=== PATIENT | male | born 1940 | race Caucasian/White ===

== ENCOUNTER → 2017-03-21 | Outpatient (CLI) | payer MEDICARE, BC ==
--- NOTE | 2017-03-21 15:06 | CR ---
EXAMINATION: Lumbar spine HISTORY: Low back pain COMPARISON: 11/12/2016 TECHNIQUE: AP and lateral views FINDINGS: There is grade 1-2 anterolisthesis of L5 on S1 with bilateral posterior fusion. Otherwise the lumbar spinal alignment appears normal. There is mild wedging of the L1 vertebral body, grossly unchanged. Generalized osteopenia is noted. No fracture or acute osseous abnormality. Early osteophy jesse are present. The SI joints are symmetric. IMPRESSION: 1. Grade 1-2 anterolisthesis of L5 on S1 with bilateral posterior fusion. 2. Stable wedge deformity at L1.
== END ==
LOC: MW.DI 11:30
PROVIDERS: ATTEND Neurological Surgery
DX: M54.5 Low back pain (principal); M43.16 Spondylolisthesis, lumbar region; Z98.1 Arthrodesis status; M43.8X6 Other specified deforming dorsopathies, lumbar region
CPT/HCPCS: 72100; 72100-26

== ENCOUNTER 2018-08-13 17:06 | Emergency (ER) | payer MEDICARE, BC ==
[2018-08-13] MEDS ORDERED: Sodium Chloride 0.9% 2.5 ML Syringe FLUSH PRN (17:22)
[2018-08-13] MEDS ORDERED: Ondansetron 4 MG/2 ML SDV IVPUSH ONE (17:22)
[2018-08-13] MEDS ORDERED: Morphine 2 MG/ML Syringe IVPUSH ONE ×2 (17:22→18:15)
[2018-08-13] MEDS ORDERED: Sodium Chloride 0.9% 1,000 ML IV ONE (17:22)
[2018-08-13] MEDS ORDERED: Sodium Chloride 0.9% 10 ML Syringe FLUSH PRN (17:22)
--- NOTE | 2018-08-13 17:25 | EDM.PDOC ---
ED HPI GENERAL MEDICAL PROBLEM - General Source of Information: Reports: Patient History Limitations: Reports: No Limitations right side/back Pain Score (Numeric/FACES): 10 <Alanis Singleton - Last Filed: 08/13/18 18:27> <Madhavi Frey - Last Filed: 08/13/18 20:16> - General Stated Complaint: FELL OFF A STOOL Time Seen by Provider: 08/13/18 17:08 - History of Present Illness INITIAL COMMENTS - FREE TEXT/NARRATIVE: History of present illness: []Patient fell off approximately a 4-1/2 foot stool prior to arrival and landed on his right flank. He denies any loss of consciousness or head injury. Patient states he is not short of breath, but it hurts around his right posterior ribs to take a deep breath. Review of systems: As per history of present illness and below otherwise all systems reviewed and negative. Past medical history: As per history of present illness and as reviewed below otherwise noncontributory. Surgical history: As per history of present illness and as reviewed below otherwise noncontributory. Social history: No reported history of drug or alcohol abuse. Family history: As per history of present illness and as reviewed below otherwise noncontributory. Physical exam: General: Well developed, well nourished in NAD HEENT: Atraumatic, normocephalic, pupils reactive, negative for conjunctival pallor or scleral icterus, mucous membranes moist, throat clear, neck supple, nontender, trachea midline. Lungs: Clear to auscultation, breath sounds equal bilaterally, chest tender posterior lower ribs on the right no subcutaneous or bony crepitance palpated Heart: S1S2, regular, negative for clicks, rubs, or JVD. Abdomen: Soft, nondistended, tender in right lateral upper abdomen. Negative for masses or hepatosplenomegaly. Back:No point vertebral tenderness, no obvious signs of trauma patient is tender over his right posterior lower ribs and flank to palpation Pelvis: Stable nontender. Genitourinary: Deferred. Rectal: Deferred. Extremities: Atraumatic, negative for cords or calf pain. Neurovascular unremarkable. Neuro: Awake, alert, oriented. Cranial nerves II through XII unremarkable. Cerebellum unremarkable. Motor and sensory unremarkable throughout. Exam nonfocal. Skin:warm and dry Diagnostics: CBC, chemistry, lipase, CT chest, abdomenand pelvis Therapeutics: Normal saline, morphine titrated to comfort and Zofran ED Course: Impression: Fall: Prescriptions: Plan: Definitive disposition and diagnosis as appropriate pending reevaluation and review of above. (Alanis Singleton) Case was endorsed to me to follow-up testing results and disposition the patient. Patient has a right posterior lateral eighth rib fracture without internal organ injury and the radiologist contacted me with this result. I conveyed the information to the patient and at bedside. He has an incentive spirometer at home and I will instruct him on using that and give him [place] for pain management. He says he has taken opioids in the past after her back surgery and he is comfortable with low dose medications. Impression: Fall with right posterior lateral eighth rib fracture stable ( Madhavi Frey) - Related Data Allergies Allergy/AdvReac Type Severity Reaction Status Date / Time No Known Allergies Allergy Verified 08/13/18 17:27 Home Meds: Home Meds Calcium Citrate 600 mg PO DAILY 08/13/18 [History] Cholecalciferol (Vitamin D3) [Vitamin D3] 5,000 mg PO DAILY 08/13/18 [History] Diclofenac Sodium [Voltaren] 75 mg PO DAILY 08/13/18 [History] Docusate Sodium [Colace] 100 mg PO DAILY 08/13/18 [History] Finasteride 5 mg PO BEDTIME 08/13/18 [History] Fish Oil/[place]-3 Fatty Acids [Fish Oil 1,000 MG] 1 gm PO DAILY 08/13/18 [History ] Fluticasone Propionate [Flovent] 0.5 mg PO BID 08/13/18 [History] Gluc HCl/Csa/Fabi Hy/Hyalur Ac [Glucosamine Chondroitin] 1 cap PO DAILY [History] Lisinopril 10 mg PO BEDTIME 08/13/18 [History] Multivit with Calcium,Iron,Min [Essential Daily] 1 tab PO DAILY 08/13/18 [ History] Potassium 99 mg PO DAILY 08/13/18 [History] Past Medical History Cardiovascular History: Reports: Hypertension Musculoskeletal History: Reports: Osteoporosis - Past Surgical History HEENT Surgical History: Reports: Adenoidectomy, Tonsillectomy Neurological Surgical History: Reports: Spinal Fusion Musculoskeletal Surgical History: Reports: Arthroscopic Knee <Alanis Singleton - Last Filed: 08/13/18 18:27> Review of Systems - Review of Systems Review Of Systems: ROS reveals no pertinent complaints other than HPI. <Alanis Singleton - Last Filed: 08/13/18 18:27> ED EXAM, GENERAL - Physical Exam Exam: See Below (See history of present illness) <Alanis Singleton - Last Filed: 08/13/18 18:27> - Vital Signs Last Recorded V/S: Last Vital Signs Temp 36.5 C 08/13/18 17:27 Pulse 70 08/13/18 19:32 Resp 18 08/13/18 19:32 BP 155/75 H 08/13/18 19:32 Pulse Ox 96 08/13/18 19:32 - Orders/Labs/Meds Orders: Active Orders 24 hr Category Date Time Status Abdomen Pelvis w Cont [CT] Stat Exams 08/13/18 17:23 Taken Chest w Cont [CT] Stat Exams 08/13/18 17:23 Taken Sodium Chloride 0.9% [Saline Flush] Med 08/13/18 17:22 Active 10 ml FLUSH ASDIRECTED PRN Sodium Chloride 0.9% [Saline Flush] Med 08/13/18 17:22 Active 2.5 ml FLUSH ASDIRECTED PRN Saline Lock Insert [OM.PC] Stat Oth 08/13/18 17:22 Ordered Medication Orders Sodium Chloride (Saline Flush) 10 ml FLUSH ASDIRECTED PRN PRN Reason: Keep Vein Open Sodium Chloride (Saline Flush) 2.5 ml FLUSH ASDIRECTED PRN PRN Reason: Keep Vein Open Labs: Laboratory Tests 08/13/18 08/13/18 Range/Units 17:30 17:30 WBC 5.58 (4.0-11.0) K/uL RBC 4.28 L (4.50-5.90) M/uL Hgb 13.3 (13.0-17.0) g/dL Hct 39.2 (38.0-50.0) % MCV 91.6 (80.0-98.0) fL MCH 31.1 (27.0-32.0) pg MCHC 33.9 (31.0-37.0) g/dL RDW Std Deviation 45.6 (28.0-62.0) fl RDW Coeff of Balwinder 14 (11.0-15.0) % Plt Count 173 (150-400) K/uL MPV 10.50 (7.40-12.00) fL Neut % (Auto) 47.0 L (48.0-80.0) % Lymph % (Auto) 27.6 (16.0-40.0) % [place] % (Auto) 11.5 (0.0-15.0) % Eos % (Auto) 13.4 H (0.0-7.0) % Baso % (Auto) 0.5 (0.0-1.5) % Neut # (Auto) 2.6 (1.4-5.7) K/uL Lymph # (Auto) 1.5 (0.6-2.4) K/uL [place] # (Auto) 0.6 (0.0-0.8) K/uL Eos # (Auto) 0.8 H (0.0-0.7) K/uL Baso # (Auto) 0.0 (0.0-0.1) K/uL Nucleated RBC % 0.0 /100WBC Nucleated RBCs # 0 K/uL Sodium 143 (136-148) mmol/L Potassium 4.2 (3.5-5.1) mmol/L Chloride 105 (98-107) mmol/L Carbon Dioxide 28.3 (21.0-32.0) mmol/L BUN 22 H (7.0-18.0) mg/dL Creatinine 1.0 (0.8-1.3) mg/dL Est Cr Clr Drug Dosing 58.76 mL/min Estimated GFR (MDRD) > 60.0 ml/min Glucose 123 H (74-106) mg/dL Calcium 9.4 (8.5-10.1) mg/dL Total Bilirubin 0.3 (0.2-1.0) mg/dL AST 30 (15-37) IU/L ALT 39 (14-63) IU/L Alkaline Phosphatase 71 (46-116) U/L Total Protein 7.0 (6.4-8.2) g/dL Albumin 3.7 (3.4-5.0) g/dL Globulin 3.3 (2.0-3.5) g/dL Albumin/Globulin Ratio 1.1 L (1.3-2.8) Meds: Medications Generic Name Dose Route Start Last Admin Trade Name Freq PRN Reason Stop Dose Admin Sodium Chloride 10 ml 08/13/18 17:22 Saline Flush FLUSH ASDIRECTED PRN Keep Vein Open Sodium Chloride 2.5 ml 08/13/18 17:22 Saline Flush FLUSH ASDIRECTED PRN Keep Vein Open Discontinued Medications Generic Name Dose Route Start Last Admin Trade Name Freq PRN Reason Stop Dose Admin Sodium Chloride 1,000 mls @ 999 mls/hr 08/13/18 17:22 08/13/18 17:39 Normal Saline IV 08/13/18 18:22 999 mls/hr .Bolus ONE Administration Iopamidol 100 ml 08/13/18 19:15 08/13/18 19:16 Isovue-370 (76%) IVPUSH 08/13/18 19:16 100 ml ONETIME ONE Administration Morphine Sulfate 2 mg 08/13/18 17:22 08/13/18 17:41 Morphine IVPUSH 08/13/18 17:23 2 mg ONETIME ONE Administration Morphine Sulfate 2 mg 08/13/18 18:15 08/13/18 18:20 Morphine IVPUSH 08/13/18 18:16 2 mg ONETIME ONE Administration Ondansetron HCl 4 mg 08/13/18 17:22 08/13/18 17:40 Zofran IVPUSH 08/13/18 17:23 4 mg ONETIME ONE Administration Departure <Alanis Singleton - Last Filed: 08/13/18 18:27> - Departure Time of Disposition: 20:14 Condition: Good <Madhavi Frey - Last Filed: 08/13/18 20:16> - Departure Disposition: Home, Self-Care 01 Clinical Impression: Fall Qualifiers: Encounter type: initial encounter Qualified Code(s): W19.XXXA - Unspecified fall, initial encounter Rib fracture Qualifiers: Encounter type: initial encounter Rib fracture type: single rib Fracture type: closed Laterality: right Qualified Code(s): S22.31XA - Fracture of one rib, right side, initial encounter for closed fracture - Discharge Information Referrals: PCP,None [Primary Care Provider] - Additional Instructions: The following information is given to patients seen in the emergency department who are being discharged to home. This information is to outline your options for follow-up care. We provide all patients seen in our emergency department with a follow-up referral. The need for follow-up, as well as the timing and circumstances, are variable depending upon the specifics of your emergency department visit. If you don't have a primary care physician on staff, we will provide you with a referral. We always advise you to contact your personal physician following an emergency department visit to inform them of the circumstance of the visit and for follow-up with them and/or the need for any referrals to a consulting specialist. The emergency department will also refer you to a specialist when appropriate. This referral assures that you have the opportunity for followup care with a specialist. All of these measure are taken in an effort to provide you with optimal care, which includes your followup. Under all circumstances we always encourage you to contact your private physician who remains a resource for coordinating your care. When calling for followup care, please make the office aware that this follow-up is from your recent emergency room visit. If for any reason you are refused follow-up, please contact the [facility] emergency department at and ask to speak to the emergency department charge nurse. [facility] Primary care- [place] [address] Use the incentive spirometer that you have at home 10 times every 1-2 hours for the next week. Use [place] as needed and as prescribed as well as over-the- counter ibuprofen. Please call and schedule a follow-up appointment with her provider in the clinic and return to ER as needed and as discussed. Expect aches and pains over the next several days
[2018-08-13 18:13] LABS: CHLORIDE,CL 105 mmol/L (98-107); SODIUM,NA 143 mmol/L (136-148)
[2018-08-13] MEDS ORDERED: Iopamidol 755 Mg/ML 100 ML Bottle IVPUSH ONE (19:15)
--- NOTE | 2018-08-14 15:52 | CT ---
EXAM DATE: 08/13/18 PATIENT'S AGE: 77 Patient: ROSEMARY PICHARDO Facility: [place], [place] Site . Site : 1940 Study: CT Chest -08/13/2018 7:19:32 PM Ordering Physician: Mani Thapa Final Report: INDICATION: pain following fall. 1079 images. chest/abdomen pictures coming in single line item send HISTORY: Pain after fall. COMPARISON: None. TECHNIQUE: CT of the chest, abdomen, and pelvis with intravenous contrast. Coronal/ sagittal reconstruction images. 100 cc of Isovue 370 IV. FINDINGS: Chest: The inferior thyroid gland is symmetric. There is no thoracic lymphadenopathy by size criteria. There is no pleural or pericardial effusion. Normal caliber thoracic aorta. Normal caliber main pulmonary artery. No evidence for an intramural/mediastinal hematoma. The lung windows demonstrate no endobronchial mass. There is no bronchiectasis. There is no architectural distortion. There is dependent atelectasis. There is no pneumothorax. There is no evidence for a laceration. There are a few calcified pleural plaques present, primarily in the right hemithorax (series 203 , image 52). Abdomen/pelvis: Hepatic morphology is normal. No dilation of intrahepatic biliary radicals. No perihepatic ascites. Gallstones. No adrenal mass. Symmetric nephrograms. 2 mm stone in the left kidney on image 48, series 301. No perinephric inflammatory changes. Spleen size is normal. There is no pancreatic mass or pancreatic duct dilation. No glandular atrophy. Prostate is enlarged. The prostate measures 4.9 x 4.6 cm in AP and transverse dimensions. Calculi are seen in the dependent portion of the urinary bladder, best seen on image 109 of series 301. Extraperitoneal space of Retzius is clear. There is no evidence for a small bowel or colonic obstruction. There is no perienteric edema. No transition point. No adenopathy is seen by size criteria in the pelvis, retroperitoneum, gastrohepatic ligament, small bowel mesentery. Does demonstrate a sclerotic lesion present in the right iliac bone, which may be postsurgical in nature. Findings should be correlated for any history of malignancy which can produce sclerotic metastases. The patient is post spinal fusion/decompression at the lumbosacral junction. There is anterolisthesis at the lumbosacral junction, which measures 10 mm in dimension. There is an age- indeterminate compression deformity at L1, with between 25 and 50 percent vertebral body height loss. Sclerotic appearance of several left lateral ribs, seen best on image 40, series 202. These are most likely related to chronic fracture deformities. There is a subtle fracture of the right posterior lateral 8th rib on image 58 of series 202. The scapula appears intact. IMPRESSION: 1. No intramural or mediastinal hematoma. 2. No pulmonary laceration or pneumothorax. 3. No hemoperitoneum or visceral organ injury. 4. Prior decompression/spinal fusion at the lumbosacral junction. 10 millimeters of anterolisthesis of L5 on S1. 5. Age-indeterminate compression deformity at L1, with less than 25 percent vertebral body height loss. The middle/posterior columns appear intact at this level. 6. Minimally displaced posterolateral 8th rib fracture. No chest wall hematoma. 7. Prostatic enlargement. Calculi within the urinary bladder, which is likely secondary to bladder outlet obstruction/urinary stasis. 8. Report called to Dr. Frey, Emergency Department, 08/13/18, 2003 hours. Dictated by Zack Aguirre MD @ 08/13/2018 8:04:49 PM Please note that all CT scans at this facility use dose modulation, iterative reconstruction, and/or weight-based dosing when appropriate to reduce radiation dose to as low as reasonably achievable. Dictated by: Zack Aguirre MD @ 08/13/2018 20:04:59 (Electronic Signature) Report Signed by Proxy. [facility] HOSPITALKarolyn
--- NOTE | 2018-08-14 15:53 | CT ---
EXAM DATE: 08/13/18 PATIENT'S AGE: 77 Patient: ROSEMARY PICHARDO Facility: [place], [place] Site . Site : 1940 Study: CT Abdomen -08/13/2018 7:22:26 PM Ordering Physician: Mani Thapa Final Report: INDICATION: image count put under chest req, 1079 ml isovue 370 @ 3.0 ml/sec INDICATION: pain following fall. 1079 images. chest/abdomen pictures coming in single line item send HISTORY: Pain after fall. COMPARISON: None. TECHNIQUE: CT of the chest, abdomen, and pelvis with intravenous contrast. Coronal/ sagittal reconstruction images. 100 cc of Isovue 370 IV. FINDINGS: Chest: The inferior thyroid gland is symmetric. There is no thoracic lymphadenopathy by size criteria. There is no pleural or pericardial effusion. Normal caliber thoracic aorta. Normal caliber main pulmonary artery. No evidence for an intramural/mediastinal hematoma. The lung windows demonstrate no endobronchial mass. There is no bronchiectasis. There is no architectural distortion. There is dependent atelectasis. There is no pneumothorax. There is no evidence for a laceration. There are a few calcified pleural plaques present, primarily in the right hemithorax (series 203 , image 52). Abdomen/pelvis: Hepatic morphology is normal. No dilation of intrahepatic biliary radicals. No perihepatic ascites. Gallstones. No adrenal mass. Symmetric nephrograms. 2 mm stone in the left kidney on image 48, series 301. No perinephric inflammatory changes. Spleen size is normal. There is no pancreatic mass or pancreatic duct dilation. No glandular atrophy. Prostate is enlarged. The prostate measures 4.9 x 4.6 cm in AP and transverse dimensions. Calculi are seen in the dependent portion of the urinary bladder, best seen on image 109 of series 301. Extraperitoneal space of Retzius is clear. There is no evidence for a small bowel or colonic obstruction. There is no perienteric edema. No transition point. No adenopathy is seen by size criteria in the pelvis, retroperitoneum, gastrohepatic ligament, small bowel mesentery. Does demonstrate a sclerotic lesion present in the right iliac bone, which may be postsurgical in nature. Findings should be correlated for any history of malignancy which can produce sclerotic metastases. The patient is post spinal fusion/decompression at the lumbosacral junction. There is anterolisthesis at the lumbosacral junction, which measures 10 mm in dimension. There is an age- indeterminate compression deformity at L1, with between 25 and 50 percent vertebral body height loss. Sclerotic appearance of several left lateral ribs, seen best on image 40, series 202. These are most likely related to chronic fracture deformities. There is a subtle fracture of the right posterior lateral 8th rib on image 58 of series 202. The scapula appears intact. IMPRESSION: 1. No intramural or mediastinal hematoma. 2. No pulmonary laceration or pneumothorax. 3. No hemoperitoneum or visceral organ injury. 4. Prior decompression/spinal fusion at the lumbosacral junction. 10 millimeters of anterolisthesis of L5 on S1. 5. Age-indeterminate compression deformity at L1, with less than 25 percent vertebral body height loss. The middle/posterior columns appear intact at this level. 6. Minimally displaced posterolateral 8th rib fracture. No chest wall hematoma. 7. Prostatic enlargement. Calculi within the urinary bladder, which is likely secondary to bladder outlet obstruction/urinary stasis. 8. Report called to Dr. Frey, Emergency Department, 08/13/18, 2003 hours. Dictated by Zack Aguirre MD @ 08/13/2018 8:04:49 PM Please note that all CT scans at this facility use dose modulation, iterative reconstruction, and/or weight-based dosing when appropriate to reduce radiation dose to as low as reasonably achievable. Dictated by: Zack Aguirre MD @ 08/13/2018 20:06:10 (Electronic Signature) Report Signed by Proxy. [facility]
== END 2018-08-13 20:29 | disposition home or self-care (01) ==
LOC: MW.ED 17:06
DX: S22.31XA Fracture of one rib, right side, initial encounter for closed fracture (principal); I10 Essential (primary) hypertension; Z79.899 Other long term (current) drug therapy; W19.XXXA Unspecified fall, initial encounter
CPT/HCPCS: 36415; 71260; 74177; 80053; 85025; 96361; 96374; 96375; 96376; 99284; J2270; J2405; J7040; Q9967; 99283

== ENCOUNTER 2018-12-15 10:43 | Emergency (ER) | payer MEDICARE, BC ==
[2018-12-15] MEDS ORDERED: Morphine 2 MG/ML Syringe IVPUSH ONE ×2 (11:12→15:47)
--- NOTE | 2018-12-15 11:18 | EDM.PDOC ---
ED HPI GENERAL MEDICAL PROBLEM - General Chief Complaint: Back Pain or Injury Stated Complaint: BACK PAIN Time Seen by Provider: 12/15/18 11:12 Source of Information: Reports: Patient, Family History Limitations: Reports: No Limitations - History of Present Illness INITIAL COMMENTS - FREE TEXT/NARRATIVE: HISTORY AND PHYSICAL: History of present illness: Patient is a 77-year-old male here with complaint of back pain 2 days postop back surgery. She had a spinal stimulator placed on 12/13/18 Dr. Su at [facility]. He states that today he is having 10/10 back pain that is mostly localized in the lumbar back with some pain into the bilateral hips. He states his pain is much worse than prior to his procedure, have some bilateral hip pain prior but is more significant today. He denies any saddle anesthesia, lower extremity weakness that is new or worsened, foot drop, fevers or chills. He has taken his Flexeril and [place] with very little relief of symptoms. He states he tried to call his neurosurgeon today but he was not in sleep advised him to come to the ED. Patient states his pain is mostly muscle spasming that wraps around to his abdomen. He has a follow up with his neurosurgeon on . Review of systems: As per history of present illness and below otherwise all systems reviewed and negative. Past medical history: As per history of present illness and as reviewed below otherwise noncontributory. Surgical history: As per history of present illness and as reviewed below otherwise noncontributory. Social history: No reported history of drug or alcohol abuse. Family history: As per history of present illness and as reviewed below otherwise noncontributory. Physical exam: General: Patient sitting comfortably in no acute distress and nontoxic appearing HEENT: Atraumatic, normocephalic, pupils reactive, negative for conjunctival pallor or scleral icterus, mucous membranes moist, throat clear, neck supple, nontender, trachea midline. No meningeal signs. Lungs: Clear to auscultation, breath sounds equal bilaterally, chest nontender. Heart: S1S2, regular, negative for clicks, rubs, or overt murmur. Abdomen: Moderate tenderness to light palpation of the abdomen diffusely. Soft, nondistended. Negative for masses or hepatosplenomegaly. Negative for costovertebral tenderness. Pelvis: Stable nontender. Genitourinary: Deferred. Rectal: Deferred. Spine: There is an incision at the lower thoracic spine, no surrounding erythema , swelling, discharge or tenderness. Tender to palpation of lumbar vertebra. There is an incision at the right lower back where stimulator battery was placed. It is slightly swollen and ecchymotic and tender to palpation but no erythema or discharge. Extremities: Atraumatic, negative for cords or calf pain. Neurovascular unremarkable. Neuro: Awake, alert, oriented. Cranial nerves II through XII unremarkable. Cerebellum unremarkable. Motor and sensory unremarkable throughout. Exam nonfocal. Notes: Discussed with Dr. Gurrola, neurosurgery at [facility], he states this is normal post surgical pain and advised pain management and no imaging necessary at this time. Diagnostics: CBC, CMP Therapeutics: 4mg Morphine IV 60mg Norflex IM Prescriptions: Norflex Impression: Back pain s/p spinal stimulator implant Plan: 1. Take [place] as prescribed. Discontinue flexeril and start norflex as instructed. Do not drive while taking these medications as they may make you drowsy. 2. Follow up with primary care provider and neurosurgeon 3. Return to ED as needed as discussed Definitive disposition and diagnosis as appropriate pending reevaluation and review of above. back Pain Score (Numeric/FACES): 10 - Related Data Allergies Allergy/AdvReac Type Severity Reaction Status Date / Time No Known Allergies Allergy Verified 12/15/18 11:17 Home Meds: Home Meds Calcium Citrate 600 mg PO DAILY 08/13/18 [History] Cholecalciferol (Vitamin D3) [Vitamin D3] 5,000 mg PO DAILY 08/13/18 [History] Finasteride 5 mg PO BEDTIME 08/13/18 [History] Fish Oil/[place]-3 Fatty Acids [Fish Oil 1,000 MG] 1 gm PO DAILY 08/13/18 [History ] Gluc HCl/Csa/Fabi Hy/Hyalur Ac [Glucosamine Chondroitin] 1 cap PO DAILY [History] Lisinopril 10 mg PO BEDTIME 08/13/18 [History] Multivit with Calcium,Iron,Min [Essential Daily] 1 tab PO DAILY 08/13/18 [ History] Potassium 99 mg PO DAILY 08/13/18 [History] Cyclobenzaprine [Flexeril] 10 mg PO Q6HR PRN 12/15/18 [History] Hydrocodone/Acetaminophen [Hydrocodon-Acetaminophen 5-325] 1 tab PO Q6H PRN 06/25 [History] Past Medical History Cardiovascular History: Reports: Hypertension Musculoskeletal History: Reports: Osteoporosis - Infectious Disease History Infectious Disease History: Reports: Chicken Pox, Mumps - Past Surgical History HEENT Surgical History: Reports: Adenoidectomy, Tonsillectomy Neurological Surgical History: Reports: Spinal Fusion Musculoskeletal Surgical History: Reports: Arthroscopic Knee Social & Family History - Family History Family Medical History: Noncontributory - Caffeine Use Caffeine Use: Reports: Coffee ED ROS GENERAL - Review of Systems Review Of Systems: ROS reveals no pertinent complaints other than HPI. ED EXAM,LOWER BACK PAIN/INJURY - Physical Exam Exam: See Below (See dictation) Course - Vital Signs Last Recorded V/S: Last Vital Signs Temp 96.3 F 12/15/18 11:19 Pulse 89 12/15/18 13:00 Resp 18 12/15/18 13:00 BP 147/86 H 12/15/18 13:00 Pulse Ox 98 12/15/18 13:00 - Orders/Labs/Meds Orders: Active Orders 24 hr Category Date Time Status Morphine Med 12/15/18 15:47 Once 2 mg IVPUSH ONETIME ONE Labs: Laboratory Tests 12/15/18 12/15/18 Range/Units 11:48 11:48 WBC 6.05 (4.0-11.0) K/uL RBC 3.79 L (4.50-5.90) M/uL Hgb 11.6 L (13.0-17.0) g/dL Hct 35.0 L (38.0-50.0) % MCV 92.3 (80.0-98.0) fL MCH 30.6 (27.0-32.0) pg MCHC 33.1 (31.0-37.0) g/dL RDW Std Deviation 44.5 (28.0-62.0) fl RDW Coeff of Bal[place] 13 (11.0-15.0) % Plt Count 136 L (150-400) K/uL MPV 10.60 (7.40-12.00) fL Neut % (Auto) 62.7 (48.0-80.0) % Lymph % (Auto) 23.0 (16.0-40.0) % [place] % (Auto) 12.4 (0.0-15.0) % Eos % (Auto) 1.7 (0.0-7.0) % Baso % (Auto) 0.2 (0.0-1.5) % Neut # (Auto) 3.8 (1.4-5.7) K/uL Lymph # (Auto) 1.4 (0.6-2.4) K/uL [place] # (Auto) 0.8 (0.0-0.8) K/uL Eos # (Auto) 0.1 (0.0-0.7) K/uL Baso # (Auto) 0.0 (0.0-0.1) K/uL Nucleated RBC % 0.0 /100WBC Nucleated RBCs # 0 K/uL Sodium 141 (136-148) mmol/L Potassium 4.4 (3.5-5.1) mmol/L Chloride 104 (98-107) mmol/L Carbon Dioxide 33.3 H (21.0-32.0) mmol/L BUN 18 (7.0-18.0) mg/dL Creatinine 1.2 (0.8-1.3) mg/dL Est Cr Clr Drug Dosing 48.96 mL/min Estimated GFR (MDRD) 58.9 ml/min Glucose 131 H (74-106) mg/dL Calcium 9.4 (8.5-10.1) mg/dL Total Bilirubin 0.6 (0.2-1.0) mg/dL AST 100 H (15-37) IU/L ALT 27 (14-63) IU/L Alkaline Phosphatase 49 (46-116) U/L Total Protein 6.5 (6.4-8.2) g/dL Albumin 3.4 (3.4-5.0) g/dL Globulin 3.1 (2.6-4.0) g/dL Albumin/Globulin Ratio 1.1 (0.9-1.6) Meds: Medications Discontinued Medications Generic Name Dose Route Start Last Admin Trade Name Freq PRN Reason Stop Dose Admin Morphine Sulfate 2 mg 12/15/18 11:12 12/15/18 11:28 Morphine IVPUSH 12/15/18 11:13 2 mg ONETIME ONE Administration Orphenadrine Citrate 60 mg 12/15/18 12:07 12/15/18 12:41 Norflex IM 12/15/18 12:08 Not Given NOW STA Orphenadrine Citrate 60 mg 12/15/18 12:38 12/15/18 12:41 Norflex IV 12/15/18 12:39 60 mg NOW STA Administration Departure - Departure Time of Disposition: 15:50 Disposition: Home, Self-Care 01 Condition: Good Clinical Impression: Back pain, Previous back surgery, Spinal cord stimulator status - Discharge Information Referrals: PCP,Unknown [Primary Care Provider] - Forms: ED Department Discharge Additional Instructions: The following information is given to patients seen in the emergency department who are being discharged to home. This information is to outline your options for follow-up care. We provide all patients seen in our emergency department with a follow-up referral. The need for follow-up, as well as the timing and circumstances, are variable depending upon the specifics of your emergency department visit. If you don't have a primary care physician on staff, we will provide you with a referral. We always advise you to contact your personal physician following an emergency department visit to inform them of the circumstance of the visit and for follow-up with them and/or the need for any referrals to a consulting specialist. The emergency department will also refer you to a specialist when appropriate. This referral assures that you have the opportunity for follow-up care with a specialist. All of these measure are taken in an effort to provide you with optimal care, which includes your follow-up. Under all circumstances we always encourage you to contact your private physician who remains a resource for coordinating your care. When calling for follow-up care, please make the office aware that this follow-up is from your recent emergency room visit. If for any reason you are refused follow-up, please contact the [facility] Emergency Department at and asked to speak to the emergency department charge nurse. [facility] [address] [place] [id number] [address] 1. Take [place] as prescribed. Discontinue flexeril and start norflex as instructed. Do not drive while taking these medications as they may make you drowsy. 2. Follow up with primary care provider and neurosurgeon 3. Return to ED as needed as discussed - My Orders Last 24 Hours: My Active Orders 12/15/18 15:47 Morphine 2 mg IVPUSH ONETIME ONE - Assessment/Plan Last 24 Hours: My Active Orders 12/15/18 15:47 Morphine 2 mg IVPUSH ONETIME ONE
--- NOTE | 2018-12-15 15:34 | CT ---
CT of the abdomen and pelvis with contrast. HISTORY: Pain TECHNIQUE: Axial CT images were obtained of the abdomen and pelvis following administration of 100 mL of Isovue-370 the right antecubital fossa without complication. Coronal and sagittal reconstructions obtained. FINDINGS: The lung bases are clear, no pleural effusion. Mild dependent atelectasis. Calcified pleural plaques noted. The liver, spleen, and pancreas appear normal. Multiple gallstones noted within the gallbladder without significant gallbladder wall thickening. No bulky retroperitoneal lymphadenopathy or abdominal ascites. The kidneys enhance and function symmetrically without evidence of obstructive uropathy. Nonobstructing nephrolithiasis within the lower pole of the left kidney. The large and small bowel are normal in caliber without evidence of obstruction. No focal pericolonic inflammation or stranding. The appendix is normal. The urinary bladder is normal. Mild prominence of the prostate with fungating appearance into the urinary bladder. Minimal right inguinal hernia containing a very small portion of small bowel. There is grade 1 anterolisthesis of L5 on S1. Bilateral posterior fusion noted at this level with overlying laminectomy changes. There is a recently placed spinal cord stimulator device noted with leads projecting over the mid thoracic spine. IMPRESSION: 1. Cholelithiasis without definite cholecystitis. 2. Nonobstructing left nephrolithiasis. 3. Recently placed spinal stimulator device noted with leads projecting over the midthoracic spine. 4. Calcified pleural plaques, likely secondary to previous is best this exposure. 5. Postsurgical changes noted within the lower lumbar spine. Mild prostatomegaly. 6. Minimal right inguinal hernia containing a very small portion of small bowel.
[2018-12-15] MEDS ORDERED: Iopamidol 755 MG/ML 500 ML Multipack Bottle IVPUSH STA (16:02)
== END 2018-12-15 16:19 | disposition home or self-care (01) ==
LOC: MW.ED 10:43
DX: M54.5 Low back pain (principal); I10 Essential (primary) hypertension; Z79.899 Other long term (current) drug therapy; Z96.9 Presence of functional implant, unspecified; Z98.890 Other specified postprocedural states
CPT/HCPCS: 36415; 74177; 80053; 85025; 96374; 96375; 99284; J2270; J2360; Q9967; 99283

== ENCOUNTER 2019-12-28 16:22 | Emergency (ER) | payer MEDICARE, BC ==
--- NOTE | 2019-12-28 17:28 | EDM.PDOC ---
ED HPI GENERAL MEDICAL PROBLEM - General Chief Complaint: Genitourinary Problem Stated Complaint: BLADDER CONTROL Time Seen by Provider: 12/28/19 17:28 Source of Information: Reports: Patient History Limitations: Reports: No Limitations - History of Present Illness INITIAL COMMENTS - FREE TEXT/NARRATIVE: HISTORY AND PHYSICAL: History of present illness: Patient is a 78-year-old male presents to the ED with complaint of frequent urination. He states since this morning he is having the urge to urinate but when he goes he only urinates a small amount. He states he has been incontinent of urine as well. He denies bowel incontinence. He reports history of chronic back pain but no new or worsening back pain or injury. He denies fevers, chills , nausea, vomiting, diarrhea, hematuria. Review of systems: As per history of present illness and below otherwise all systems reviewed and negative. Past medical history: As per history of present illness and as reviewed below otherwise noncontributory. Surgical history: As per history of present illness and as reviewed below otherwise noncontributory. Social history: No reported history of drug or alcohol abuse. Family history: As per history of present illness and as reviewed below otherwise noncontributory. Physical exam: General: Patient sitting comfortably in no acute distress and nontoxic appearing HEENT: Atraumatic, normocephalic, pupils reactive, negative for conjunctival pallor or scleral icterus, mucous membranes moist, throat clear, neck supple, nontender, trachea midline. No meningeal signs. Lungs: Clear to auscultation, breath sounds equal bilaterally, chest nontender. Heart: S1S2, regular, negative for clicks, rubs, or overt murmur. Abdomen: Soft, nondistended, nontender. Negative for masses or hepatosplenomegaly. Negative for costovertebral tenderness. No rigidity, rebound , guarding. Pelvis: Stable nontender. Genitourinary: Deferred. Rectal: Deferred. Extremities: Atraumatic, negative for cords or calf pain. Neurovascular unremarkable. Neuro: Awake, alert, oriented. Cranial nerves II through XII unremarkable. Cerebellum unremarkable. Motor and sensory unremarkable throughout. Exam nonfocal. Notes: Diagnostics: UA Therapeutics: none Prescriptions: Cipro Impression: UTI Plan: Drink plenty of fluids and take antibiotic as directed. Follow up with primary care provider Return to ED as needed as discussed Definitive disposition and diagnosis as appropriate pending reevaluation and review of above. - Related Data Allergies Allergy/AdvReac Type Severity Reaction Status Date / Time No Known Allergies Allergy Verified 12/28/19 16:36 Home Meds: Home Meds Calcium Citrate 600 mg PO BID 08/13/18 [History] Cholecalciferol (Vitamin D3) [Vitamin D3] 5,000 mg PO DAILY 08/13/18 [History] Finasteride 5 mg PO BEDTIME 08/13/18 [History] Fish Oil/[place]-3 Fatty Acids [Fish Oil 1,000 MG] 1 gm PO BID 08/13/18 [History] Lisinopril 10 mg PO BEDTIME 08/13/18 [History] Multivit with Calcium,Iron,Min [Essential Daily] 1 tab PO DAILY 08/13/18 [ History] Potassium 99 mg PO DAILY 08/13/18 [History] DULoxetine HCl [Cymbalta] 60 mg PO DAILY 12/10/19 [History] Denosumab [Prolia] 60 mg SQ ASDIRECTED 12/10/19 [History] Fluticasone Furoate [Flonase Sensimist] 1 spray NASBOTH ASDIRECTED PRN 12/10/19 [History] Glucosamine/D3/[place]os[place]ia Carli [Osteo Bi-Flex Caplet] 1 tab PO DAILY 12/10/19 [ History] Simvastatin 40 mg PO DAILY 12/10/19 [History] polyethylene glycoL 3350 [MiraLAX] 17 gm PO ASDIRECTED PRN 12/10/19 [History] Ciprofloxacin HCl [Cipro] 500 mg PO BID 7 Days #14 tablet 12/28/19 [Rx] Past Medical History HEENT History: Reports: Allergic Rhinitis, Other (See Below) Other HEENT History: wears glasses, has upper partial removable denture, hard of hearing in crowds Cardiovascular History: Reports: High Cholesterol, Hypertension Gastrointestinal History: Reports: Colon Polyp Musculoskeletal History: Reports: Back Pain, Chronic, Fracture, Osteoarthritis, Osteoporosis Other Musculoskeletal History: hx of fx right femur Psychiatric History: Reports: Depression - Infectious Disease History Infectious Disease History: Reports: Chicken Pox, Mumps - Past Surgical History Head Surgeries/Procedures: Reports: None HEENT Surgical History: Reports: Tonsillectomy GI Surgical History: Reports: Colonoscopy Neurological Surgical History: Reports: Lumbar Spine, Spinal Fusion, Other (See Below) Other Neurological Surgeries/Procedures: Insertion of Spinal Cord Stimulator and battery pack Musculoskeletal Surgical History: Reports: Arthroscopic Knee Other Musculoskeletal Surgeries/Procedures:: hx of bilateral knee arthroscopies Social & Family History - Family History Family Medical History: Noncontributory - Tobacco Use Smoking Status *Q: Never Smoker Second Hand Smoke Exposure: No - Caffeine Use Caffeine Use: Reports: Coffee, Soda - Recreational Drug Use Recreational Drug Use: No ED ROS GENERAL - Review of Systems Review Of Systems: Comprehensive ROS is negative, except as noted in HPI. ED EXAM, RENAL/ - Physical Exam Exam: See Below (see dictation) Course - Vital Signs Last Recorded V/S: Last Vital Signs Temp 97.4 F 12/28/19 16:36 Pulse 75 12/28/19 16:36 Resp 15 12/28/19 16:36 BP 114/64 12/28/19 16:36 Pulse Ox 94 L 12/28/19 16:36 - Orders/Labs/Meds Orders: Active Orders 24 hr Category Date Time Status CULTURE URINE [RM] Stat Lab 12/28/19 17:19 Received Labs: Laboratory Tests 12/28/19 Range/Units 17:19 Urine Color YELLOW Urine Appearance SLT CLOUDY Urine pH 7.0 (5.0-8.0) Ur Specific [place] 1.025 (1.001-1.035) Urine Protein 100 H (NEGATIVE) mg/dL Urine Glucose (UA) NEGATIVE (NEGATIVE) mg/dL Urine Ketones NEGATIVE (NEGATIVE) mg/dL Urine Occult Blood LARGE H (NEGATIVE) Urine Nitrite NEGATIVE (NEGATIVE) Urine Bilirubin NEGATIVE (NEGATIVE) Urine Urobilinogen 0.2 (<2.0) EU/dL Ur Leukocyte Esterase MODERATE H (NEGATIVE) Urine RBC 6-12 (0-2/HPF) Urine WBC 10-15 (0-5/HPF) Ur Epithelial Cells FEW (NONE-FEW) Amorphous Sediment MODERATE (NEGATIVE) Urine Bacteria 2+ H (NEGATIVE) Urinalysis Comment Departure - Departure Time of Disposition: 17:40 Disposition: Home, Self-Care 01 Condition: Good Clinical Impression: UTI (urinary tract infection) - Discharge Information Prescriptions: Ciprofloxacin HCl [Cipro] 500 mg PO BID 7 Days #14 tablet Referrals: Landon Dee MD [Primary Care Provider] - Forms: ED Department Discharge Additional Instructions: The following information is given to patients seen in the emergency department who are being discharged to home. This information is to outline your options for follow-up care. We provide all patients seen in our emergency department with a follow-up referral. The need for follow-up, as well as the timing and circumstances, are variable depending upon the specifics of your emergency department visit. If you don't have a primary care physician on staff, we will provide you with a referral. We always advise you to contact your personal physician following an emergency department visit to inform them of the circumstance of the visit and for follow-up with them and/or the need for any referrals to a consulting specialist. The emergency department will also refer you to a specialist when appropriate. This referral assures that you have the opportunity for follow-up care with a specialist. All of these measure are taken in an effort to provide you with optimal care, which includes your follow-up. Under all circumstances we always encourage you to contact your private physician who remains a resource for coordinating your care. When calling for follow-up care, please make the office aware that this follow-up is from your recent emergency room visit. If for any reason you are refused follow-up, please contact the [facility] Emergency Department at and asked to speak to the emergency department charge nurse. [facility] [address] [place] [id number] [place] [address] Drink plenty of fluids and take antibiotic as directed. Follow up with primary care provider Return to ED as needed as discussed Sepsis Event Note - Evaluation Sepsis Screening Result: No Definite Risk - Focused Exam Vital Signs: Vital Signs Temp Pulse Resp BP Pulse Ox 12/28/19 16:36 97.4 F 75 15 114/64 94 L Date Exam was Performed: 12/28/19 Time Exam was Performed: 17:40 - My Orders Last 24 Hours: My Active Orders 12/28/19 17:19 CULTURE URINE [RM] Stat - Assessment/Plan Last 24 Hours: My Active Orders 12/28/19 17:19 CULTURE URINE [RM] Stat
== END 2019-12-28 18:01 | disposition home or self-care (01) ==
LOC: MW.ED 16:22
DX: N39.0 Urinary tract infection, site not specified (principal); I10 Essential (primary) hypertension; E78.00 Pure hypercholesterolemia, unspecified; F32.9 Major depressive disorder, single episode, unspecified; Z79.899 Other long term (current) drug therapy
CPT/HCPCS: 81001; 87086; 99283

== ENCOUNTER 2020-11-30 21:46 | Emergency (ER) | payer MEDICARE, OTHER ==
--- NOTE | 2020-11-30 22:24 | EDM.PDOC ---
ED HPI GENERAL MEDICAL PROBLEM - General Chief Complaint: General Stated Complaint: FALL EARLIER, PAIN Time Seen by Provider: 11/30/20 21:47 - History of Present Illness INITIAL COMMENTS - FREE TEXT/NARRATIVE: 79-year-old male presenting with left thigh hip and left chest pain after fall patient slipped on his back steps and slid down 3 steps. He sustained a small abrasion to the right anterior knee however his pain is focused in the left thigh the left hip and the left chest. No shortness of breath the pain in the left thigh worsens significantly whenever he tries to bear any weight and he is unable to bear any significant amount of weight on the left leg. No pain in the upper extremities no pain in the back no pain in the neck no other pain in the lower extremities. Pain is minimal except when he tries to ambulate. L ribs, L hip, R leg Pain Score (Numeric/FACES): 10 - Related Data Allergies Allergy/AdvReac Type Severity Reaction Status Date / Time No Known Allergies Allergy Verified 11/30/20 22:18 Home Meds: Home Meds Calcium Citrate 600 mg PO BID 08/13/18 [History] Cholecalciferol (Vitamin D3) [Vitamin D3] 5,000 mg PO DAILY 08/13/18 [History] Finasteride 5 mg PO BEDTIME 08/13/18 [History] Fish Oil/[place]-3 Fatty Acids [Fish Oil 1,000 MG] 1 gm PO BID 08/13/18 [History] Lisinopril 10 mg PO BEDTIME 08/13/18 [History] Multivit with Calcium,Iron,Min [Essential Daily] 1 tab PO DAILY 08/13/18 [History] Potassium 99 mg PO DAILY 08/13/18 [History] DULoxetine HCl [Cymbalta] 60 mg PO DAILY 12/10/19 [History] Denosumab [Prolia] 60 mg SQ ASDIRECTED 12/10/19 [History] Fluticasone Furoate [Flonase Sensimist] 1 spray NASBOTH ASDIRECTED PRN 12/10/19 [History] Glucosamine/D3/Boswellia Carli [Osteo Bi-Flex Caplet] 1 tab PO DAILY 12/10/19 [History] Simvastatin 40 mg PO DAILY 12/10/19 [History] polyethylene glycoL 3350 [MiraLAX] 17 gm PO ASDIRECTED PRN 12/10/19 [History] Ciprofloxacin HCl [Cipro] 500 mg PO BID 7 Days #14 tablet 12/28/19 [Rx] Past Medical History HEENT History: Reports: Allergic Rhinitis, Other (See Below) Other HEENT History: wears glasses, has upper partial removable denture, hard of hearing in crowds Cardiovascular History: Reports: High Cholesterol, Hypertension Gastrointestinal History: Reports: Colon Polyp Genitourinary History: Reports: BPH, UTI, Recurrent Musculoskeletal History: Reports: Back Pain, Chronic, Fracture, Osteoarthritis, Osteoporosis Other Musculoskeletal History: hx of fx right femur, multiple sacral and lumbar back surgeries Psychiatric History: Reports: Depression - Infectious Disease History Infectious Disease History: Reports: Chicken Pox, Measles, Mumps, Shingles - Past Surgical History Head Surgeries/Procedures: Reports: None HEENT Surgical History: Reports: Tonsillectomy Cardiovascular Surgical History: Reports: None GI Surgical History: Reports: Colonoscopy Neurological Surgical History: Reports: Lumbar Spine, Spinal Fusion, Other (See Below) Other Neurological Surgeries/Procedures: Insertion of Spinal Cord Stimulator and battery pack Musculoskeletal Surgical History: Reports: Arthroscopic Knee Other Musculoskeletal Surgeries/Procedures:: hx of bilateral knee arthroscopies Social & Family History - Family History Family Medical History: No Pertinent Family History - Caffeine Use Caffeine Use: Reports: Coffee, Soda ED ROS GENERAL - Review of Systems Review Of Systems: See Below Free Text/Narrative/Comment: General: No fever. Skin: No rash. Eyes: No vision problems. ENT: No sore throat. Neck: No neck stiffness. Respiratory: No shortness of breath. Cardiac: No chest pain. Gastrointestinal: No nausea, vomiting or abdominal pain. Urinary: No dysuria. Musculoskeletal: Per HPI Neurologic: No headache. ED EXAM, GENERAL - Physical Exam Exam: See Below Free Text/Narrative:: General Appearance: No acute distress, appears comfortable Skin: Superficial abrasion to the right knee without any swelling underlying crepitus or deformity HEENT: Normocephalic/atraumatic, sclera anicteric, mucous membranes moist Neck: Normal range of motion Chest and Lungs: Bilateral breath sounds, clear to auscultation, mild tenderness without deformity left inferior chest wall Cardiovascular: Regular rate and rhythm, no murmur Abdomen: Soft, non-tender Back: Normal Musculoskeletal: 2+ DP pulses bilaterally focal tenderness without deformity in the left hip patient has a tender swelling of the left anterior thigh from the midline anteriorly to just laterally occupying the middle and lateral quad minimal tenderness just superior to the patella and extensor mechanism is not intact he has significant pain with extensor mechanism testing though he is for a split second able to slow the descent of the heel and straight leg testing., There is no focal bony tenderness of the bilateral feet ankles knees or the upper extremities Neurologic: Awake, alert, no obvious deficits, moving all extremities Psychiatric: Appropriate, cooperative Course - Vital Signs Last Recorded V/S: Last Vital Signs Temp 96.9 F 11/30/20 22:05 Pulse 77 11/30/20 22:05 Resp 18 11/30/20 22:05 BP 132/59 L 11/30/20 22:05 Pulse Ox 95 11/30/20 22:05 Departure - Departure Time of Disposition: 00:00 Disposition: Home, Self-Care 01 Condition: Good Clinical Impression: Quadriceps muscle rupture - Discharge Information *PRESCRIPTION DRUG MONITORING PROGRAM REVIEWED*: Not Applicable *COPY OF PRESCRIPTION DRUG MONITORING REPORT IN PATIENT CORA: Not Applicable Instructions: How to Use a Knee Immobilizer Referrals: Jorge Cruz DO [Physician] - 1 Week Forms: ED Department Discharge Additional Instructions: Your x-rays have no sign of broken bones. I am concerned that you have partially ruptured your quadriceps. Please wear the knee immobilizer whenever you are up and about to take it off when he was seated with your foot elevated or if you are in bed. Please call the orthopedic surgeon's office tomorrow to arrange a follow-up appointment. The following information is given to patients seen in the emergency department who are being discharged to home. This information is to outline your options for follow-up care. We provide all patients seen in our emergency department with a follow-up referral. The need for follow-up, as well as the timing and circumstances, are variable depending upon the specifics of your emergency department visit. If you don't have a primary care physician on staff, we will provide you with a referral. We always advise you to contact your personal physician following an emergency department visit to inform them of the circumstance of the visit and for follow-up with them and/or the need for any referrals to a consulting specialist. The emergency department will also refer you to a specialist when appropriate. This referral assures that you have the opportunity for follow-up care with a specialist. All of these measure are taken in an effort to provide you with optimal care, which includes your follow-up. Under all circumstances we always encourage you to contact your private physician who remains a resource for coordinating your care. When calling for follow-up care, please make the office aware that this follow-up is from your recent emergency room visit. If for any reason you are refused follow-up, please contact the [facility] at and asked to speak to the emergency department charge nurse. Sepsis Event Note (ED) - Focused Exam Vital Signs: Vital Signs Temp Pulse Resp BP Pulse Ox 11/30/20 22:05 96.9 F 77 18 132/59 L 95 - Assessment/Plan Assessment:: 79-year-old male presenting with likely partial quadriceps tear and rib contusion x-ray of the chest ordered as well as x-rays of the hips and femur. Patient's abrasion has been well dressed and does not require further evaluation. He has no sign of traumatic injury to the upper extremities. If x- ray is negative for acute fracture anticipate discharge with walker and knee immobilizer. Patient will need to follow-up with orthopedic surgery. X-rays negative patient comfortable with discharge home with follow-up knee immobilizer applied crutches as well return precautions discussed and understood. Patient requires the knee immobilizer for protective treatment for the next several days crutches as well to aid in ambulation.
--- NOTE | 2020-11-30 23:53 | CR ---
INDICATION: Fall. COMPARISON: None. FINDINGS/IMPRESSION: Lungs are clear and no acute intrathoracic abnormalities are identified. No pleural effusions or pneumothorax. Normal heart size. No fractures or other acute osseous findings are seen. A neurostimulator is projected over the thoracic spinal canal. Dictated by Vasyl Philip MD @ 11/30/2020 11:50:45 PM Dictated by: Vasyl Philip MD @ 11/30/2020 23:51:27 (Electronically Signed)
--- NOTE | 2020-11-30 23:55 | CR ---
PELVIS, LEFT HIP, AND LEFT FEMUR INDICATION: Fall. COMPARISON: 09/12/2020 pelvis radiograph. FINDINGS/IMPRESSION: Postoperative changes in the lower lumbar spine, as before. Neurostimulator generator over the right iliac crest, unchanged. Very mild bilateral hip degenerative changes, as before. No acute fracture identified in the bony pelvis, left hip, or left femur. Mild tricompartmental osteoarthritis of the left knee is noted, with meniscal calcification consistent with chondrocalcinosis. Dictated by Vasyl Philip MD @ 11/30/2020 11:53:45 PM Dictated by: Vasyl Philip MD @ 11/30/2020 23:55:01 (Electronically Signed)
== END 2020-12-01 00:20 | disposition home or self-care (01) ==
LOC: MW.ED 21:46
DX: S76.112A Strain of left quadriceps muscle, fascia and tendon, initial encounter (principal); E78.00 Pure hypercholesterolemia, unspecified; I10 Essential (primary) hypertension; Z79.899 Other long term (current) drug therapy; W10.8XXA Fall (on) (from) other stairs and steps, initial encounter
CPT/HCPCS: 71045; 71045-26; 73501-26-LT; 73501-LT; 73552-26-LT; 73552-LT; 99284; 99284-25

== ENCOUNTER 2021-09-28 10:04 | Day surgery (SDC) | payer MEDICARE, OTHER ==
[~2021-09-28 10:04] MED LIST: Lactated Ringers 1,000 ML IV SCH
--- NOTE | 2021-09-28 11:19 | PCM.PREANE ---
Preanesthetic Assessment - Anesthesia/Transfusion/Family Hx Anesthesia History: Prior Anesthesia Without Reaction Transfusion History: No Prior Transfusion(s) - Review of Systems General: No Symptoms Pulmonary: No Symptoms Cardiovascular: No Symptoms Gastrointestinal: No Symptoms Neurological: No Symptoms Other: Reports: None - Physical Assessment NPO Status Date: 09/28/21 NPO Status Time: 00:00 Vital Signs: Last Vital Signs Temp 97.5 F 09/28/21 10:16 Pulse 92 09/28/21 10:16 Resp 14 09/28/21 10:16 BP 140/68 09/28/21 10:16 Pulse Ox 98 09/28/21 10:16 Height: 5 ft 7 in Weight: 170 lb Mental Status: Alert & Oriented x3 Airway Class: Mallampati = 1 Dentition: Reports: Normal Dentition Thyro-Mental Finger Breadths: 3 Mouth Opening Finger Breadths: 3 ROM/Head Extension: Full Lungs: Clear to Auscultation, Normal Respiratory Effort Cardiovascular: Regular Rate, Regular Rhythm - Allergies Allergies/Adverse Reactions: Allergies Allergy/AdvReac Type Severity Reaction Status Date / Time No Known Allergies Allergy Verified 09/22/21 11:02 - Acknowledgements Anesthesia Type Planned: General Anesthesia Pt an Appropriate Candidate for the Planned Anesthesia: Yes Alternatives and Risks of Anesthesia Discussed w Pt/Guardian: Yes Pt/Guardian Understands and Agrees with Anesthesia Plan: Yes PreAnesthesia Questionnaire HEENT History: Reports: Allergic Rhinitis, Other (See Below) Other HEENT History: wears glasses, has upper partial removable denture, hard of hearing in crowds Cardiovascular History: Reports: High Cholesterol, Hypertension Respiratory History: Reports: None Gastrointestinal History: Reports: Colon Polyp Genitourinary History: Reports: BPH, UTI, Recurrent Other Genitourinary History: has passed several kidney stones Musculoskeletal History: Reports: Back Pain, Chronic, Fracture, Osteoarthritis, Osteoporosis Other Musculoskeletal History: hx of fx right femur, multiple sacral and lumbar back surgeries Neurological History: Reports: Vertigo Psychiatric History: Reports: Depression Endocrine/Metabolic History: Reports: None Hematologic History: Reports: None Immunologic History: Reports: None Oncologic (Cancer) History: Reports: None Dermatologic History: Reports: None - Infectious Disease History Infectious Disease History: Reports: Chicken Pox, Measles, Mumps, Shingles - Past Surgical History Head Surgeries/Procedures: Reports: None HEENT Surgical History: Reports: Tonsillectomy Cardiovascular Surgical History: Reports: None GI Surgical History: Reports: Colonoscopy Male Surgical History: Reports: None Neurological Surgical History: Reports: Lumbar Spine, Spinal Fusion, Other (See Below) Other Neurological Surgeries/Procedures: Insertion of Spinal Cord Stimulator and battery pack Musculoskeletal Surgical History: Reports: Arthroscopic Knee Other Musculoskeletal Surgeries/Procedures:: hx of bilateral knee arthroscopies - SUBSTANCE USE Tobacco Use Status *Q: Former Tobacco User Tobacco Use Within Last Twelve Months: No Recreational Drug Use History: No - HOME MEDS Home Medications: Home Meds Calcium Citrate 200 mg PO BID 08/13/18 [History] Cholecalciferol (Vitamin D3) [Vitamin D3] 5,000 mg PO DAILY 08/13/18 [History] Finasteride 5 mg PO BEDTIME 08/13/18 [History] Fish Oil/[place]-3 Fatty Acids [Fish Oil 1,000 MG] 1 gm PO BID 08/13/18 [History] Lisinopril 10 mg PO BEDTIME 08/13/18 [History] Multivit with Calcium,Iron,Min [Essential Daily] 1 tab PO DAILY 08/13/18 [History] Potassium 99 mg PO DAILY 08/13/18 [History] DULoxetine HCl [Cymbalta] 60 mg PO DAILY 12/10/19 [History] Denosumab [Prolia] 60 mg SQ ASDIRECTED 12/10/19 [History] Fluticasone Furoate [Flonase Sensimist] 1 spray NASBOTH ASDIRECTED PRN 12/10/19 [History] Simvastatin 40 mg PO DAILY 12/10/19 [History] polyethylene glycoL 3350 [MiraLAX] 17 gm PO ASDIRECTED PRN 12/10/19 [History] Oscillococcinum 1 tab PO DAILY PRN 09/22/21 [History] Tamsulosin HCl 0.4 mg PO BEDTIME 09/22/21 [History] Zicam Cold Tablet 1 tab PO ASDIRECTED PRN 09/22/21 [History] - CURRENT (IN HOUSE) MEDS Current Meds: Current Medications Lactated Ringer's (Ringers, Lactated) 1,000 mls @ 125 mls/hr IV ASDIRECTED ISAAK Last Admin: 09/28/21 10:22 Dose: 125 mls/hr Documented by:
[2021-09-28] MEDS ORDERED: propofoL 50 ML ONE (11:27)
[2021-09-28] MEDS ORDERED: Lidocaine 2% 5 ML SDV ONE (12:07)
[2021-09-28] MEDS ORDERED: Lactated Ringers 1,000 ML IV SCH (12:30)
--- NOTE | 2021-09-28 12:30 | PCM.POSTAN ---
POST ANESTHESIA ASSESSMENT - MENTAL STATUS Mental Status: Alert, Oriented - VITAL SIGNS Vital Signs: Last Vital Signs Temp 97.5 F 09/28/21 12:25 Pulse 72 09/28/21 12:25 Resp 15 09/28/21 12:25 BP 105/59 L 09/28/21 12:25 Pulse Ox 98 09/28/21 12:25 - RESPIRATORY Respiratory Status: Respiratory Rate WNL, Airway Patent, O2 Saturation Stable - CARDIOVASCULAR CV Status: Pulse Rate WNL, Blood Pressure Stable - GASTROINTESTINAL GI Status: No Symptoms - POST OP HYDRATION Hydration Status: Adequate & Stable
--- NOTE | 2021-09-28 12:31 | PCM48HPAN ---
Post Anesthesia Note - EVALUATION WITHIN 48HRS OF ANESTHETIC Patient Participated in Evaluation: Yes Respiratory Function Stable: Yes Airway Patent: Yes Cardiovascular Function Stable: Yes Hydration Status Stable: Yes Pain Control Satisfactory: Yes Nausea and Vomiting Control Satisfactory: Yes Mental Status Recovered: Yes Vital Signs: Last Vital Signs Temp 97.5 F 09/28/21 12:25 Pulse 72 09/28/21 12:25 Resp 15 09/28/21 12:25 BP 105/59 L 09/28/21 12:25 Pulse Ox 98 09/28/21 12:25
--- NOTE | 2021-09-28 12:32 | PCM.OPNOTE ---
- General Post-Op/Procedure Note Date of Surgery/Procedure: 09/28/21 Operative Procedure(s): Colonoscopy with cold cecal and sigmoid colon polypectomies. Pre Op Diagnosis: Personal history of colon polyps. Rectal bleeding. Post-Op Diagnosis: Cecal and sigmoid polyps. Anesthesia Technique: MAC (ASA III) Primary Surgeon: Isak Le Condition: Good Free Text/Narrative:: DICTATION [id number] CPT CODE 11099
--- NOTE | 2021-09-28 12:54 | OR ---
SURGEON: Isak Le M.D. DATE OF PROCEDURE: 09/28/2021 OPERATION PERFORMED: Colonoscopy with cold cecal and sigmoid colon polypectomy. PRIMARY SURGEON: Isak Le MD. ANESTHESIA: MAC. ASA CLASSIFICATION: III. PREOPERATIVE DIAGNOSIS: Personal history of colon polyps with rectal bleeding. POSTOPERATIVE DIAGNOSIS: Cecal and sigmoid colon polyps. DESCRIPTION OF PROCEDURE: The patient was taken to the endoscopy room and positioned on the endoscopy table in the left lateral decubitus position. Time-out was called for appropriate identification of the patient and procedure. Monitored anesthesia care was provided. The colonoscope was inserted into the rectum and advanced with minimal difficulty to the cecum. The cecum was identified by internal landmarks and external pressure. The colonoscope was retroflexed to visualize the ascending colon from below and then straightened and slowly withdrawn. One small polyp was encountered in the cecum and this was removed with the cold biopsy forceps. The remainder of the ascending colon, hepatic flexure, transverse colon, splenic flexure, descending colon showed no tumors, polyps, diverticula, or angiodysplastic changes. A second polyp was encountered in the sigmoid colon and likewise removed with the cold biopsy forceps. Again, no significant bleeding was noted. The colonoscope was then withdrawn to the rectum and retroflexed to visualize the anal orifice from above. No tumors, polyps, or acute hemorrhoidal changes were noted. The colonoscope was then straightened, the rectum aspirated and the colonoscope removed. The patient tolerated the procedure well and was taken to the recovery room in stable condition. ANABEL / JENNI /[id number]
== END 2021-09-28 13:08 | disposition home or self-care (01) ==
LOC: MW.SDS 10:04
PROVIDERS: ATTEND Surgery
DX: D12.0 Benign neoplasm of cecum (principal); I10 Essential (primary) hypertension; E78.00 Pure hypercholesterolemia, unspecified; M81.0 Age-related osteoporosis without current pathological fracture; Z91.048 Other nonmedicinal substance allergy status; Z79.899 Other long term (current) drug therapy; Z98.890 Other specified postprocedural states; Z87.891 Personal history of nicotine dependence
CPT/HCPCS: 45380; J2704; J7120

== ENCOUNTER 2021-10-05 06:04 | Day surgery (SDC) | payer MEDICARE, OTHER ==
[~2021-10-05 06:04] MED LIST changes: +ceFAZolin 1 GM in Premix Bag 1 BAG IV ONE
--- NOTE | 2021-10-05 07:02 | PCM.PREANE ---
Preanesthetic Assessment - Procedure Proposed Procedure: Right Inguinal Hernia Repair with poss mesh - Anesthesia/Transfusion/Family Hx Anesthesia History: Prior Anesthesia Without Reaction Family History of Anesthesia Reaction: No Transfusion History: No Prior Transfusion(s) - Review of Systems General: No Symptoms Pulmonary: No Symptoms (Former smoker, quit 1976) Cardiovascular: No Symptoms (HTN, HLD) Gastrointestinal: No Symptoms (h/o colon polyps) Neurological: No Symptoms Other: Reports: None, Depression - Physical Assessment NPO Status Date: 10/04/21 NPO Status Time: 18:30 Vital Signs: Last Vital Signs Temp 96.4 F L 10/05/21 06:45 Pulse 62 10/05/21 06:45 Resp 15 10/05/21 06:45 BP 165/74 H 10/05/21 06:45 Pulse Ox 97 10/05/21 06:45 Height: 5 ft 7 in Weight: 77.111 kg ASA Class: 2 Mental Status: Alert & Oriented x3 Airway Class: Mallampati = 3 Dentition: Reports: Partial (upper partial) Thyro-Mental Finger Breadths: 3 Mouth Opening Finger Breadths: 3 ROM/Head Extension: Full Lungs: Clear to Auscultation, Normal Respiratory Effort Cardiovascular: Regular Rate, Regular Rhythm - Lab Values: Laboratory Last Values SARS-CoV-2 RNA (ISABEL) NEGATIVE (NEGATIVE) 10/05/21 06:00 - Allergies Allergies/Adverse Reactions: Allergies Allergy/AdvReac Type Severity Reaction Status Date / Time No Known Allergies Allergy Verified 09/29/21 10:01 - Acknowledgements Anesthesia Type Planned: General Anesthesia Pt an Appropriate Candidate for the Planned Anesthesia: Yes Alternatives and Risks of Anesthesia Discussed w Pt/Guardian: Yes Pt/Guardian Understands and Agrees with Anesthesia Plan: Yes PreAnesthesia Questionnaire HEENT History: Reports: Allergic Rhinitis, Other (See Below) Other HEENT History: wears glasses, has upper partial removable denture, hard of hearing in crowds Cardiovascular History: Reports: High Cholesterol, Hypertension Respiratory History: Reports: None Gastrointestinal History: Reports: Colon Polyp Genitourinary History: Reports: BPH, UTI, Recurrent Other Genitourinary History: has passed several kidney stones Musculoskeletal History: Reports: Back Pain, Chronic, Fracture, Osteoarthritis, Osteoporosis Other Musculoskeletal History: hx of fx right femur, multiple sacral and lumbar back surgeries Neurological History: Reports: Vertigo Psychiatric History: Reports: Depression Endocrine/Metabolic History: Reports: None Hematologic History: Reports: None Immunologic History: Reports: None Oncologic (Cancer) History: Reports: None Dermatologic History: Reports: None - Infectious Disease History Infectious Disease History: Reports: Chicken Pox, Measles, Mumps, Shingles - Past Surgical History Head Surgeries/Procedures: Reports: None HEENT Surgical History: Reports: Tonsillectomy Cardiovascular Surgical History: Reports: None GI Surgical History: Reports: Colonoscopy Male Surgical History: Reports: None Neurological Surgical History: Reports: Lumbar Spine, Spinal Fusion, Other (See Below) Other Neurological Surgeries/Procedures: Insertion of Spinal Cord Stimulator and battery pack Musculoskeletal Surgical History: Reports: Arthroscopic Knee Other Musculoskeletal Surgeries/Procedures:: hx of bilateral knee arthroscopies - SUBSTANCE USE Tobacco Use Status *Q: Former Tobacco User Tobacco Use Within Last Twelve Months: No Recreational Drug Use History: No - HOME MEDS Home Medications: Home Meds Calcium Citrate 200 mg PO BID 08/13/18 [History] Cholecalciferol (Vitamin D3) [Vitamin D3] 5,000 mg PO DAILY 08/13/18 [History] Finasteride 5 mg PO BEDTIME 08/13/18 [History] Fish Oil/[place]-3 Fatty Acids [Fish Oil 1,000 MG] 1 gm PO BID 08/13/18 [History] Lisinopril 10 mg PO BEDTIME 08/13/18 [History] Multivit with Calcium,Iron,Min [Essential Daily] 1 tab PO DAILY 08/13/18 [History] Potassium 99 mg PO DAILY 08/13/18 [History] DULoxetine HCl [Cymbalta] 60 mg PO DAILY 12/10/19 [History] Denosumab [Prolia] 60 mg SQ ASDIRECTED 12/10/19 [History] Fluticasone Furoate [Flonase Sensimist] 1 spray NASBOTH ASDIRECTED PRN 12/10/19 [History] Simvastatin 40 mg PO DAILY 12/10/19 [History] polyethylene glycoL 3350 [MiraLAX] 17 gm PO ASDIRECTED PRN 12/10/19 [History] Oscillococcinum 1 tab PO DAILY PRN 09/22/21 [History] Tamsulosin HCl 0.4 mg PO BEDTIME 09/22/21 [History] Zicam Cold Tablet 1 tab PO ASDIRECTED PRN 09/22/21 [History] - CURRENT (IN HOUSE) MEDS Current Meds: Current Medications Lactated Ringer's (Ringers, Lactated) 1,000 mls @ 125 mls/hr IV ASDIRECTED ISAAK Discontinued Medications Cefazolin Sodium/Dextrose 1 gm (/ Premix) 50 mls @ 100 mls/hr IV ONETIME ONE Stop: 10/05/21 06:29
[2021-10-05] MEDS ORDERED: Desflurane 240 ML Bottle ONE (07:11)
[2021-10-05] MEDS ORDERED: Midazolam 1 MG/ML 2 ML SDV ONE (07:13)
[2021-10-05] MEDS ORDERED: fentaNYL 100 MCG/2 ML SDV ONE (07:13)
[2021-10-05] MEDS ORDERED: Propofol 200 MG/20 ML SDV ONE (07:13)
[2021-10-05] MEDS ORDERED: Glycopyrrolate 0.2 MG/ML SDV ONE (07:14)
[2021-10-05] MEDS ORDERED: Lidocaine 2% 5 ML SDV ONE (07:14)
[2021-10-05] MEDS ORDERED: Ondansetron 4 MG/2 ML SDV ONE (07:14)
[2021-10-05] MEDS ORDERED: Ketorolac 30 MG/ML SDV ONE (07:14)
[2021-10-05] MEDS ORDERED: Bupivacaine 0.5% 10 ML SDV ONE (07:18)
[2021-10-05] MEDS ORDERED: ceFAZolin 1 GM Vial ONE ×2 (07:18→07:50)
[2021-10-05] MEDS ORDERED: Water For Injection, Sterile 20 ML ONE (07:50)
[2021-10-05] MEDS ORDERED: HYDROmorphone 1 MG/ML Syringe IVPUSH PRN (08:26)
[2021-10-05] MEDS ORDERED: fentaNYL 100 MCG/2 ML SDV IVPUSH PRN (08:26)
[2021-10-05] MEDS ORDERED: Metoclopramide 10 MG/2 ML SDV IVPUSH PRN (08:26)
[2021-10-05] MEDS ORDERED: Albuterol 0.083% 2.5 MG/3 ML Neb Soln NEB PRN (08:26)
[2021-10-05] MEDS ORDERED: Naloxone 0.4 MG/ML SDV IVPUSH PRN (08:26)
[2021-10-05] MEDS ORDERED: Ondansetron 4 MG/2 ML SDV IVPUSH PRN ×2 (08:26→09:16)
[2021-10-05] MEDS ORDERED: Acetaminophen/HYDROcodone 325-5 MG Tab PO PRN (09:16)
[2021-10-05] MEDS ORDERED: Morphine 4 MG/ML VIAL IVPUSH PRN (09:16)
[2021-10-05] MEDS ORDERED: Acetaminophen 1,000 MG in Premix Bag 1 BAG IV ONE (09:23)
--- NOTE | 2021-10-05 09:27 | PCM.POSTAN ---
POST ANESTHESIA ASSESSMENT - MENTAL STATUS Mental Status: Alert, Oriented - VITAL SIGNS Vital Signs: Last Vital Signs Temp 96.4 F L 10/05/21 06:45 Pulse 62 10/05/21 06:45 Resp 15 10/05/21 06:45 BP 165/74 H 10/05/21 06:45 Pulse Ox 97 10/05/21 06:45 - RESPIRATORY Respiratory Status: Respiratory Rate WNL, Airway Patent, O2 Saturation Stable - CARDIOVASCULAR CV Status: Pulse Rate WNL, Blood Pressure Stable - GASTROINTESTINAL GI Status: No Symptoms - PAIN Pain Score: 5 - POST OP HYDRATION Hydration Status: Adequate & Stable
[2021-10-05] MEDS ORDERED: Lactated Ringers 1,000 ML IV SCH (09:30)
--- NOTE | 2021-10-05 09:30 | PCM.OPNOTE ---
- General Post-Op/Procedure Note Date of Surgery/Procedure: 10/05/21 Operative Procedure(s): Repair right inguinal hernia with large Bard PerFix plug and patch Pre Op Diagnosis: Reducible right inguinal hernia Post-Op Diagnosis: Reducible indirect right inguinal hernia Anesthesia Technique: General LMA (ASA II) Primary Surgeon: Isak Le Fluid Replacement, Intraop: 800 EBL in mLs: 10 Condition: Good Free Text/Narrative:: DICTATION 712800 CPT CODE 70436
--- NOTE | 2021-10-05 09:44 | PCM48HPAN ---
Post Anesthesia Note - EVALUATION WITHIN 48HRS OF ANESTHETIC Vital Signs in Normal Range: Yes Patient Participated in Evaluation: Yes Respiratory Function Stable: Yes Airway Patent: Yes Cardiovascular Function Stable: Yes Hydration Status Stable: Yes Pain Control Satisfactory: Yes Nausea and Vomiting Control Satisfactory: Yes Mental Status Recovered: Yes Vital Signs: Last Vital Signs Temp 97.3 F 10/05/21 09:15 Pulse 72 10/05/21 09:40 Resp 11 L 10/05/21 09:40 BP 142/62 H 10/05/21 09:40 Pulse Ox 97 10/05/21 09:40 - COMMENTS/OBSERVATIONS Free Text/Narrative:: Pt doing well post-op. VSS. No apparent anesthetic complications. Dr. Bienvenido Dee
--- NOTE | 2021-10-05 15:53 | OR ---
SURGEON: Isak Le M.D. DATE OF PROCEDURE: 10/05/2021 OPERATION PERFORMED: Repair of right inguinal hernia with large Bard PerFix plug and patch. PRIMARY SURGEON: Isak Le M.D. ANESTHESIA: General LMA. ASA CLASSIFICATION: II. PREOPERATIVE DIAGNOSIS: Reducible right inguinal hernia. POSTOPERATIVE DIAGNOSIS: Reducible right inguinal hernia. ESTIMATED BLOOD LOSS: 5 mL. INTRAOPERATIVE FLUID REPLACEMENT: 800 mL of crystalloid. ESTIMATED BLOOD LOSS: 10 mL. DESCRIPTION OF PROCEDURE: The patient was taken to the operating room and placed on the operating table in the supine position. Time-out was called for appropriate identification of patient and procedure. The surgical site had been marked prior to the patient entering the operating room. Thigh-high TEDs and sequential compression boots were placed. Following satisfactory attainment of general anesthesia with placement of an LMA, the abdomen was prepped with DuraPrep solution, sterile drapes were applied. Skin incision was marked out in the right inguinal crease and infiltrated with 10 mL of 0.5% Marcaine solution. Skin incision was made and deepened into the subcutaneous tissue obtaining hemostasis with the use of electrocautery. Dissection was carried down to the external oblique fascia. This was opened in the direction of its fibers. The cord was then mobilized and encircled with a [place] drain. The hernia sac was dissected away from the cord and was able to be reduced. The defect was moderate size, and therefore, a large Bard PerFix plug and patch was brought to the operating table and soaked in 1% Ancef solution. The plug was placed into the internal ring and secured with 0 Ethibond sutures. The patch was then placed over the floor, which demonstrated a large lipoma. The patch was then secured inferiorly and medially to Yonas's ligament, transitioning to the inguinal ligament and superiorly to the transversalis fascia. The wings of the patch were brought around the cord and secured laterally. All sutures except the lateral suture were secured. The patient was then given a Valsalva maneuver to 30 cm of water. The repair was solid. The wings having been brought around the cord were secured laterally with a single 0 Ethibond suture. The wound was inspected for hemostasis and small bleeding sites were electrocoagulated. The wound was then irrigated with 1% Ancef solution. The cord was returned to its anatomic location. The external oblique fascia was closed with running 3-0 Vicryl. Angelica's fascia was closed with running 3-0 Vicryl. Skin edges were reapproximated with subcuticular 4-0 Monocryl reinforced with half-inch Steri-Strips. Sterile Tegaderm pad was placed as a dressing. Sponge, needle, and instrument counts were all correct. The patient tolerated the procedure well. Following emergence from anesthesia and extubation, he was taken to recovery room in stable condition. ANABEL ARTEAGA /[id number]
== END 2021-10-05 13:35 | disposition home or self-care (01) ==
LOC: MW.SDS 06:04
PROVIDERS: ATTEND Surgery
DX: K40.90 Unilateral inguinal hernia, without obstruction or gangrene, not specified as recurrent (principal); D17.6 Benign lipomatous neoplasm of spermatic cord; I10 Essential (primary) hypertension; E78.00 Pure hypercholesterolemia, unspecified; M81.0 Age-related osteoporosis without current pathological fracture; Z79.899 Other long term (current) drug therapy; Z98.890 Other specified postprocedural states; Z87.891 Personal history of nicotine dependence; Z01.812 Encounter for preprocedural laboratory examination; Z20.822 Contact with and (suspected) exposure to COVID-19
CPT/HCPCS: 49505; A9270; C1781; J0131; J0690; J1885; J2250; J2370; J2704; J3490; J7120; U0002; 00830; 99100; J2405; J3010

== ENCOUNTER 2022-03-19 15:32 | Emergency (ER) | payer MEDICARE, OTHER ==
[2022-03-19] MEDS ORDERED: Sodium Chloride 0.9% 10 ML Syringe FLUSH PRN (16:11)
[2022-03-19] MEDS ORDERED: Sodium Chloride 0.9% 2.5 ML Syringe FLUSH PRN (16:11)
[2022-03-19 17:00] LABS: CARBON DIOXIDE,CO2 28.3 mmol/L (21.0-32.0); POTASSIUM,K 4.2 mmol/L (3.5-5.1)
[2022-03-19] MEDS ORDERED: Lidocaine 2% Viscous Solution 15 ML UD ONE (17:38)
[2022-03-19] MEDS ORDERED: Levofloxacin 500 MG Tab PO ONE (18:05)
[2022-03-19] MEDS ORDERED: cefTRIAXone 1 GM in Sodium Chloride 0.9% 50 ML IV ONE (18:05)
[2022-03-19] MEDS ORDERED: Levofloxacin 500 MG Tab ONE (18:19)
[2022-03-19] MEDS ORDERED: cefTRIAXone 1 GM AdvVial IV ONE (18:20)
[2022-03-19] MEDS ORDERED: Sodium Chloride 0.9% 0 ML ONE (18:21)
[2022-03-19] MEDS ORDERED: Sodium Chloride 0.9% 50 ML ONE (18:25)
[2022-03-19] MEDS ORDERED: Sodium Chloride 0.9% 1,000 ML IV ONE (18:45)
[2022-03-19] MEDS ORDERED: Iopamidol 755 MG/ML 500 ML Multipack Bottle IVPUSH ONE (18:48)
== END 2022-03-19 19:46 | disposition home or self-care (01) ==
LOC: MW.ED 15:32
DX: N39.0 Urinary tract infection, site not specified (principal); R31.0 Gross hematuria; E78.00 Pure hypercholesterolemia, unspecified; I10 Essential (primary) hypertension; E11.9 Type 2 diabetes mellitus without complications; N40.0 Benign prostatic hyperplasia without lower urinary tract symptoms; Z79.899 Other long term (current) drug therapy
CPT/HCPCS: 36415; 51702; 74177; 80053; 81001; 83690; 85025; 85610; 85730; 87086; 99284; A9270; J0696; J3490; J7030; Q9967

== ENCOUNTER 2022-07-02 18:00 | Inpatient (IN) | payer MEDICARE, OTHER ==
[2022-07-02] MEDS ORDERED: HYDROmorphone 1 MG/ML Syringe IVPUSH ONE (19:46)
[2022-07-02 20:28] LABS: CARBON DIOXIDE,CO2 31.6 mmol/L (21.0-32.0); POTASSIUM,K 4.5 mmol/L (3.5-5.1)
[2022-07-03] MEDS ORDERED: oxyCODONE 5 MG Tab PO PRN (01:36)
[2022-07-03] MEDS ORDERED: HYDROmorphone 1 MG/ML Syringe IVPUSH PRN (01:48)
[2022-07-03] MEDS: Enoxaparin 40 MG/0.4 ML Syringe SUBCUT SCH (02:24)
[2022-07-03 06:29] LABS: CARBON DIOXIDE,CO2 31.5 mmol/L (21.0-32.0); POTASSIUM,K 3.9 mmol/L (3.5-5.1)
[2022-07-03] MEDS ORDERED: Simvastatin 40 MG Tab PO SCH ×2 (09:00→21:00)
[2022-07-03] MEDS ORDERED: Fluticasone NASAL Spray 16 GM Bottle NASBOTH PRN (09:00)
[2022-07-03] MEDS ORDERED: DULoxetine 60 MG Cap PO SCH (09:00)
[2022-07-03] MEDS: Tamsulosin 0.4 MG Cap.ER PO SCH (09:59)
[2022-07-03] MEDS: Polyethylene Glycol 3350 Powder 17 GM Packet PO PRN (09:59)
[2022-07-03] MEDS ORDERED: Finasteride 5 MG Tab PO SCH (21:00)
[2022-07-03] MEDS ORDERED: Lisinopril 10 MG Tab PO SCH (21:00)
[2022-07-03] MEDS ORDERED: Fish Oil/Omega-3 Fatty Acids 1 Gm Cap PO SCH (21:00)
[2022-07-03] MEDS ORDERED: Tamsulosin 0.4 MG Cap.ER PO SCH (21:00)
[2022-07-03] MEDS ORDERED: Multivitamin Tab PO SCH (21:00)
[2022-07-04] MEDS: Enoxaparin 40 MG/0.4 ML Syringe SUBCUT SCH (01:51)
[2022-07-04 06:55] LABS: CARBON DIOXIDE,CO2 27.5 mmol/L (21.0-32.0); POTASSIUM,K 3.9 mmol/L (3.5-5.1)
[2022-07-04] MEDS ORDERED: POTASSIUM GLUCONATE 99 MG PO SCH (09:00)
[2022-07-04] MEDS ORDERED: DULoxetine 60 MG Cap PO SCH (09:00)
[2022-07-04] MEDS ORDERED: VITAMIN D3 1000 UNIT PO SCH (09:00)
[2022-07-04] MEDS ORDERED: CRANBERRY PLUS VITAMIN C PO SCH (09:00)
[2022-07-04] MEDS: Tamsulosin 0.4 MG Cap.ER PO SCH (09:36)
[2022-07-04] MEDS: Polyethylene Glycol 3350 Powder 17 GM Packet PO PRN (09:43)
== END 2022-07-04 14:00 | disposition home or self-care (01) | DRG 536 ==
LOC: MW.ED 18:00 → MW.MS 22:04
PROVIDERS: ADMIT Internal Medicine; ATTEND Internal Medicine
DX: S32.592A Other specified fracture of left pubis, initial encounter for closed fracture (principal); S32.512A Fracture of superior rim of left pubis, initial encounter for closed fracture; I10 Essential (primary) hypertension; G20 Parkinson's disease; M19.90 Unspecified osteoarthritis, unspecified site; E78.5 Hyperlipidemia, unspecified; Z20.822 Contact with and (suspected) exposure to COVID-19; N40.0 Benign prostatic hyperplasia without lower urinary tract symptoms; E78.00 Pure hypercholesterolemia, unspecified; M81.0 Age-related osteoporosis without current pathological fracture; M54.9 Dorsalgia, unspecified; G89.29 Other chronic pain; F32.A Depression, unspecified; Z79.899 Other long term (current) drug therapy; Z87.891 Personal history of nicotine dependence; W19.XXXA Unspecified fall, initial encounter
CPT/HCPCS: 36415; 72170; 73502; 80053; 85025; 85610; 93005; J1170; 80048; 85027; 93010; 96374; 97162-GP; 97530-GP; 99284; 99285-25; A9270-GY; J1650; U0002

== ENCOUNTER 2022-07-12 00:53 | Inpatient (IN) | payer MEDICARE, OTHER ==
[2022-07-12] MEDS ORDERED: Ondansetron 4 MG/2 ML SDV IVPUSH ONE (01:08)
[2022-07-12] MEDS ORDERED: Morphine 4 MG/ML VIAL IVPUSH ONE (01:08)
[2022-07-12 01:53] LABS: CARBON DIOXIDE,CO2 30.6 mmol/L (21.0-32.0); POTASSIUM,K 4.4 mmol/L (3.5-5.1)
[2022-07-12] MEDS ORDERED: Acetaminophen 325 MG/10.15 ML ML PO PRN (05:55)
[2022-07-12] MEDS ORDERED: Lactated Ringers 1,000 ML IV SCH (06:00)
[2022-07-12] MEDS ORDERED: Albuterol/Ipratropium 3.0-0.5 MG/3 ML Neb Soln NEB PRN (06:04)
[2022-07-12] MEDS: Pantoprazole 40 MG in Sodium Chloride 0.9% 10 ML IVPUSH SCH (06:39)
[2022-07-12] MEDS: Cholecalciferol (Vitamin D3) 25 MCG Tab PO SCH (08:17)
[2022-07-12] MEDS: Tamsulosin 0.4 MG Cap.ER PO SCH (08:17)
[2022-07-12] MEDS: Calcium Carbonate 500 MG Tablet PO SCH ×2 (08:17→21:03)
[2022-07-12] MEDS: DULoxetine 60 MG Cap PO SCH (08:17)
[2022-07-12] MEDS: Morphine 2 MG/ML SYRINGE IVPUSH PRN ×2 (08:30→17:04)
[2022-07-12] MEDS: Enoxaparin 40 MG/0.4 ML Syringe SUBCUT SCH (09:02)
[2022-07-12] MEDS: Fish Oil/Omega-3 Fatty Acids 1 Gm Cap PO SCH (21:03)
[2022-07-12] MEDS: Finasteride 5 MG Tab PO SCH (21:03)
[2022-07-12] MEDS: Simvastatin 40 MG Tab PO SCH (21:03)
[2022-07-12] MEDS: Acetaminophen 325 MG Tab PO PRN (21:31)
[2022-07-13] MEDS: Pantoprazole 40 MG in Sodium Chloride 0.9% 10 ML IVPUSH SCH (06:08)
[2022-07-13 06:20] LABS: CARBON DIOXIDE,CO2 30.9 mmol/L (21.0-32.0); POTASSIUM,K 4.1 mmol/L (3.5-5.1)
[2022-07-13] MEDS: Tamsulosin 0.4 MG Cap.ER PO SCH (08:52)
[2022-07-13] MEDS: Enoxaparin 40 MG/0.4 ML Syringe SUBCUT SCH (08:52)
[2022-07-13] MEDS: DULoxetine 60 MG Cap PO SCH (08:53)
[2022-07-13] MEDS: Calcium Carbonate 500 MG Tablet PO SCH ×2 (08:53→21:26)
[2022-07-13] MEDS: Cholecalciferol (Vitamin D3) 25 MCG Tab PO SCH (08:54)
[2022-07-13] MEDS: Morphine 2 MG/ML SYRINGE IVPUSH PRN (08:54)
[2022-07-13] MEDS: oxyCODONE 5 MG Tab PO PRN (18:44)
[2022-07-13] MEDS: Simvastatin 40 MG Tab PO SCH (21:26)
[2022-07-13] MEDS: Fish Oil/Omega-3 Fatty Acids 1 Gm Cap PO SCH (21:27)
[2022-07-13] MEDS: Finasteride 5 MG Tab PO SCH (21:27)
[2022-07-14 06:06] LABS: CARBON DIOXIDE,CO2 28.9 mmol/L (21.0-32.0); POTASSIUM,K 3.7 mmol/L (3.5-5.1)
[2022-07-14] MEDS: Enoxaparin 40 MG/0.4 ML Syringe SUBCUT SCH (08:22)
[2022-07-14] MEDS: DULoxetine 60 MG Cap PO SCH (08:23)
[2022-07-14] MEDS: Acetaminophen 325 MG Tab PO PRN (08:23)
[2022-07-14] MEDS: Tamsulosin 0.4 MG Cap.ER PO SCH (08:24)
[2022-07-14] MEDS: Calcium Carbonate 500 MG Tablet PO SCH ×2 (08:24→20:51)
[2022-07-14] MEDS: Lisinopril 10 MG Tab PO SCH (08:24)
[2022-07-14] MEDS: Pantoprazole 40 MG Tab.CR PO SCH (08:24)
[2022-07-14] MEDS: Cholecalciferol (Vitamin D3) 25 MCG Tab PO SCH (08:25)
[2022-07-14] MEDS ORDERED: Fluticasone NASAL Spray 16 GM Bottle NASBOTH PRN (08:52)
[2022-07-14] MEDS: Polyethylene Glycol 3350 Powder 17 GM Packet PO PRN (20:50)
[2022-07-14] MEDS: Fish Oil/Omega-3 Fatty Acids 1 Gm Cap PO SCH (20:50)
[2022-07-14] MEDS: Simvastatin 40 MG Tab PO SCH (20:51)
[2022-07-14] MEDS: Finasteride 5 MG Tab PO SCH (20:51)
[2022-07-14] MEDS: Docusate Sodium 100 MG Cap PO PRN (20:51)
[2022-07-14] MEDS: Multivitamins with Iron/Calcium/Folic Acid/Minerals Tab PO SCH (20:51)
[2022-07-15] MEDS: DULoxetine 60 MG Cap PO SCH (08:06)
[2022-07-15] MEDS: Tamsulosin 0.4 MG Cap.ER PO SCH (08:06)
[2022-07-15] MEDS: Pantoprazole 40 MG Tab.CR PO SCH (08:06)
[2022-07-15] MEDS: Docusate Sodium 100 MG Cap PO PRN (08:06)
[2022-07-15] MEDS: oxyCODONE 5 MG Tab PO PRN ×2 (08:07→20:12)
[2022-07-15] MEDS: Calcium Carbonate 500 MG Tablet PO SCH ×2 (08:07→20:09)
[2022-07-15] MEDS: Cholecalciferol (Vitamin D3) 25 MCG Tab PO SCH (08:07)
[2022-07-15] MEDS: Lisinopril 10 MG Tab PO SCH (08:08)
[2022-07-15] MEDS: Enoxaparin 40 MG/0.4 ML Syringe SUBCUT SCH (08:08)
[2022-07-15] MEDS ORDERED: Sennosides 8.6 MG Tab PO PRN (10:43)
[2022-07-15] MEDS: Simvastatin 40 MG Tab PO SCH (20:09)
[2022-07-15] MEDS: Finasteride 5 MG Tab PO SCH (20:09)
[2022-07-15] MEDS: Fish Oil/Omega-3 Fatty Acids 1 Gm Cap PO SCH (20:09)
[2022-07-15] MEDS: Multivitamins with Iron/Calcium/Folic Acid/Minerals Tab PO SCH (20:10)
[2022-07-16] MEDS: oxyCODONE 5 MG Tab PO PRN ×2 (05:38→11:45)
[2022-07-16] MEDS: Polyethylene Glycol 3350 Powder 17 GM Packet PO PRN (05:39)
[2022-07-16 06:38] LABS: CARBON DIOXIDE,CO2 29.4 mmol/L (21.0-32.0); POTASSIUM,K 3.9 mmol/L (3.5-5.1)
[2022-07-16] MEDS: Cholecalciferol (Vitamin D3) 25 MCG Tab PO SCH (09:08)
[2022-07-16] MEDS: Tamsulosin 0.4 MG Cap.ER PO SCH (09:08)
[2022-07-16] MEDS: Pantoprazole 40 MG Tab.CR PO SCH (09:08)
[2022-07-16] MEDS: DULoxetine 60 MG Cap PO SCH (09:08)
[2022-07-16] MEDS: Calcium Carbonate 500 MG Tablet PO SCH (09:08)
[2022-07-16] MEDS: Enoxaparin 40 MG/0.4 ML Syringe SUBCUT SCH (09:09)
[2022-07-16] MEDS: Lisinopril 10 MG Tab PO SCH (09:09)
== END 2022-07-16 11:55 | DRG 184 ==
LOC: MW.ED 00:53 → MW.MS 04:19
PROVIDERS: ADMIT Student in an Organized Health Care Education/Training Program; ATTEND Student in an Organized Health Care Education/Training Program
DX: S22.42XA Multiple fractures of ribs, left side, initial encounter for closed fracture (principal); S32.592A Other specified fracture of left pubis, initial encounter for closed fracture; F32.A Depression, unspecified; N40.0 Benign prostatic hyperplasia without lower urinary tract symptoms; E78.00 Pure hypercholesterolemia, unspecified; M81.0 Age-related osteoporosis without current pathological fracture; R26.2 Difficulty in walking, not elsewhere classified; Z20.822 Contact with and (suspected) exposure to COVID-19; I10 Essential (primary) hypertension; Z79.899 Other long term (current) drug therapy; Z97.3 Presence of spectacles and contact lenses; Z97.2 Presence of dental prosthetic device (complete) (partial); Z87.440 Personal history of urinary (tract) infections; Z86.010 Personal history of colon polyps; Z90.89 Acquired absence of other organs; Z98.1 Arthrodesis status; W01.0XXA Fall on same level from slipping, tripping and stumbling without subsequent striking against object, initial encounter; Y92.89 Other specified places as the place of occurrence of the external cause
CPT/HCPCS: 36415; 70450; 70450-26; 71250; 71250-26; 72125; 72125-26; 74176; 74176-26; 80048; 80053; 83735; 84484; 85025; 85610; 85730; 96374; 96375; 97110-GP; 97163-GP; 97530-GP; 99285-25; A9270-GY; C9113; J1650; J2270; J2405; J3490; J7120; U0002